=== PATIENT | male | born 1945 | race Caucasian/White ===

== ENCOUNTER 2016-10-11 14:28 | Outpatient (CLI) | payer OTHER, MEDICARE | END 2016-10-11 19:31 | disposition home or self-care (01) | LOC: SRD 14:28 | PROVIDERS: ATTEND Family Medicine | DX: Z01.818 Encounter for other preprocedural examination (principal); M13.812 Other specified arthritis, left shoulder; R05 Cough | CPT/HCPCS: 71020-TC ==